=== PATIENT | female | born 1935 | race Caucasian/White ===

== ENCOUNTER 2017-08-12 18:18 | Observation (INO) | payer MEDICARE, OTHER ==
[2017-08-12 19:22] LABS: ADD MAN DIFF? NO
[2017-08-12 19:29] LABS: WHITE BLOOD COUNT 6.7 10^3/ul (4.8-10.8)
[2017-08-12 19:29] LABS: BASOPHIL # 0.1 10^3/ul (0.0-0.1); BASOPHILS % 0.7 % (0.0-2.0); EOSINOPHILS # 0.2 10^3/ul (0.0-0.5); HEMOGLOBIN 11.2 g/dl (12.0-16.0); LYMPHOCYTES % 30.1 % (15.0-51.0); MEAN CORPUSCULAR HEMOGLOBIN 29.2 pg (29.0-33.0); MEAN CORPUSCULAR VOLUME 83.3 fl (82.0-101.0); MEAN PLATELET VOLUME 9.3 fl (7.4-10.4); MONOCYTE # 0.3 10^3/ul (0.3-0.9); MONOCYTES % 5.1 % (0.0-11.0); NEUTROPHIL # 4.1 10^3/ul (1.6-7.5); NEUTROPHILS % 60.7 % (39.0-77.0); PLATELET COUNT 344 10^3/UL (140-415); RED BLOOD COUNT 3.84 10^6/ul (4.20-5.40); RED CELL DISTRIBUTION WIDTH 13.3 % (11.5-14.5)
[2017-08-12 19:42] LABS: INR 0.99; PROTIME 13.2 Sec (11.9-14.9)
[2017-08-12 19:43] LABS: PARTIAL THROMBOPLASTIN TIME 29.5 Sec (25.0-35.0)
[2017-08-12 19:50] LABS: ANION GAP 18 (8-16); BLOOD UREA NITROGEN 12 mg/dl (7-20); CALCIUM 9.4 mg/dl (8.4-10.2); CARBON DIOXIDE 20 mmol/L (21-31); CHLORIDE 94 mmol/L (97-110); GLUCOSE 118 mg/dl (70-220); POTASSIUM 3.8 mmol/L (3.5-5.1); SODIUM 128 mmol/L (135-144)
[2017-08-12 20:43] LABS: TROPONIN-I < 0.012 ng/ml (0.000-0.120)
[2017-08-12] MEDS: SOD CHLORIDE 0.9% 1,000 ML IV (20:48)
[2017-08-12] MEDS: ONDANSETRON 4 MG INJ IV (20:48)
[2017-08-12] MEDS: SOD CHLORIDE 0.9% 500 ML IV ×2 (20:49→23:55)
[2017-08-12] MEDS ORDERED: ACETAMINOPHEN 325 MG TAB PO ×2 (21:00→22:00)
[2017-08-12] MEDS ORDERED: ONDANSETRON 4 MG INJ IV (21:00)
[2017-08-12 21:16] LABS: ADD UMIC YES; UR ASCORBIC ACID NEGATIVE (NEGATIVE); UR BACTERIA FEW /HPF (NONE SEEN); UR BILIRUBIN (Dip) NEGATIVE (NEGATIVE); UR BLOOD (Dip) 1+ mg/dL (NEGATIVE); UR CLARITY CLEAR (CLEAR); UR COLOR COLORLESS (YELLOW); UR GLUCOSE (Dip) NEGATIVE (NEGATIVE); UR KETONES (Dip) NEGATIVE (NEGATIVE); UR LEUKOCYTE ESTERASE (Dip) TRACE Leu/ul (NEGATIVE); UR NITRITE (Dip) NEGATIVE (NEGATIVE); UR RBC 0 /HPF (0-5); UR SPECIFIC GRAVITY (Dip) 1.004 (1.003-1.030); UR TOTAL PROTEIN (Dip) NEGATIVE (NEGATIVE); UR UROBILINOGEN (Dip) NEGATIVE (NEGATIVE); UR WBC 0 /HPF (0-5)
[2017-08-12] MEDS ORDERED: DOCUSATE SODIUM 100 MG CAP PO (22:00)
[2017-08-12] MEDS ORDERED: NACL 0.9% 3 ML SYG IV (22:00)
[2017-08-12] MEDS ORDERED: ONDANSETRON 4 MG TAB PO (22:00)
[2017-08-12] MEDS ORDERED: NITROGLYCERIN (SL) 0.4 MG TAB SL (22:00)
[2017-08-12] MEDS ORDERED: morphine 2 MG INJ IV (22:00)
[2017-08-12] MEDS ORDERED: BISACODYL (EC) 5 MG TAB PO (22:00)
[2017-08-13] MEDS: ASPIRIN 81 MG TAB PO (00:15)
[2017-08-13] MEDS: ZOLPIDEM 5 MG TAB PO (00:38)
[2017-08-13 01:37] LABS: CREATINE KINASE 84 IU/L (23-200)
[2017-08-13 01:50] LABS: CK INDEX 1.3; CK-MB 1.08 ng/ml (0.0-2.4)
[2017-08-13 01:53] LABS: TROPONIN-I < 0.012 ng/ml (0.000-0.120)
[2017-08-13 07:55] LABS: ADD MAN DIFF? NO
[2017-08-13 07:59] LABS: WHITE BLOOD COUNT 7.1 10^3/ul (4.8-10.8)
[2017-08-13 07:59] LABS: BASOPHIL # 0.1 10^3/ul (0.0-0.1); BASOPHILS % 0.8 % (0.0-2.0); EOSINOPHILS # 0.3 10^3/ul (0.0-0.5); EOSINOPHILS % 4.8 % (0.0-7.0); HEMATOCRIT 31.5 % (37.0-47.0); HEMOGLOBIN 10.6 g/dl (12.0-16.0); LYMPHOCYTES # 2.3 10^3/ul (0.8-2.9); LYMPHOCYTES % 31.8 % (15.0-51.0); MEAN CORPUSCULAR HEMOGLOBIN 28.8 pg (29.0-33.0); MEAN CORPUSCULAR HGB CONC 33.7 g/dl (32.0-37.0); MEAN CORPUSCULAR VOLUME 85.6 fl (82.0-101.0); MEAN PLATELET VOLUME 9.2 fl (7.4-10.4); MONOCYTE # 0.5 10^3/ul (0.3-0.9); MONOCYTES % 7.6 % (0.0-11.0); NEUTROPHIL # 3.9 10^3/ul (1.6-7.5); NEUTROPHILS % 54.9 % (39.0-77.0); PLATELET COUNT 341 10^3/UL (140-415); RED BLOOD COUNT 3.68 10^6/ul (4.20-5.40); RED CELL DISTRIBUTION WIDTH 13.4 % (11.5-14.5)
[2017-08-13 08:08] LABS: HEMOGLOBIN A1C 5.7 % (0-5.9)
[2017-08-13 08:22] LABS: ALANINE AMINOTRANSFERASE 12 IU/L (13-69); ALBUMIN 3.9 g/dl (3.3-4.9); ALBUMIN/GLOBULIN RATIO 1.25; ALKALINE PHOSPHATASE 69 IU/L (42-121); ANION GAP 15 (8-16); ASPARTATE AMINO TRANSFERASE 16 IU/L (15-46); BILIRUBIN,INDIRECT 0.3 mg/dl (0-1.1); BILIRUBIN,TOTAL 0.3 mg/dl (0.2-1.3); BLOOD UREA NITROGEN 9 mg/dl (7-20); CALCIUM 9.2 mg/dl (8.4-10.2); CARBON DIOXIDE 24 mmol/L (21-31); CHLORIDE 105 mmol/L (97-110); CHOLESTEROL 259 mg/dl (100-200); CREATININE 0.69 mg/dl (0.44-1.00); GLUCOSE 98 mg/dl (70-220); HDL CHOLESTEROL 43 mg/dl (33-92); LDL CHOLESTEROL,CALCULATED 183 mg/dl; MAGNESIUM 1.9 mg/dl (1.7-2.5); POTASSIUM 3.9 mmol/L (3.5-5.1); SODIUM 140 mmol/L (135-144); TRIGLYCERIDES 163 mg/dl (0-149)
[2017-08-13 08:23] LABS: CREATINE KINASE 68 IU/L (23-200)
[2017-08-13] MEDS: AMLODIPINE 5 MG TAB PO (08:31)
[2017-08-13 08:33] LABS: CK INDEX 1.1; CK-MB 0.74 ng/ml (0.0-2.4)
[2017-08-13 08:45] LABS: TROPONIN-I < 0.012 ng/ml (0.000-0.120)
[2017-08-13] MEDS ORDERED: ATORVASTATIN 20 MG TAB PO (21:00)
== END 2017-08-13 15:19 | disposition home or self-care (01) ==
LOC: E/R 18:18 → MS4 20:52
DX: R07.89 Other chest pain (principal); E87.1 Hypo-osmolality and hyponatremia; E86.0 Dehydration; I10 Essential (primary) hypertension; E78.5 Hyperlipidemia, unspecified; R51 Headache
CPT/HCPCS: 70450; 71045; 80048; 80053; 80061; 81001; 82550; 82553; 83036; 83735; 84443; 84484; 85025; 85610; 85730; 93005; 93306; 96374; 99285-25; G0378

== ENCOUNTER 2017-11-11 19:47 | Inpatient (IN) | payer MEDICARE, OTHER ==
[2017-11-11] MEDS ORDERED: LABETALOL HCL 20MG INJ IV (20:00)
[2017-11-11 20:06] LABS: ADD MAN DIFF? NO
[2017-11-11 20:13] LABS: WHITE BLOOD COUNT 13.7 10^3/ul (4.8-10.8)
[2017-11-11 20:13] LABS: BASOPHILS % 0.1 % (0.0-2.0); EOSINOPHILS % 0.1 % (0.0-7.0); HEMATOCRIT 34.8 % (37.0-47.0); HEMOGLOBIN 12.4 g/dl (12.0-16.0); LYMPHOCYTES # 2.1 10^3/ul (0.8-2.9); LYMPHOCYTES % 15.2 % (15.0-51.0); MEAN CORPUSCULAR HEMOGLOBIN 28.7 pg (29.0-33.0); MEAN CORPUSCULAR HGB CONC 35.6 g/dl (32.0-37.0); MEAN CORPUSCULAR VOLUME 80.6 fl (82.0-101.0); MEAN PLATELET VOLUME 8.7 fl (7.4-10.4); MONOCYTE # 0.6 10^3/ul (0.3-0.9); MONOCYTES % 4.5 % (0.0-11.0); NEUTROPHIL # 10.7 10^3/ul (1.6-7.5); NEUTROPHILS % 78.2 % (39.0-77.0); PLATELET COUNT 390 10^3/UL (140-415); RED BLOOD COUNT 4.32 10^6/ul (4.20-5.40); RED CELL DISTRIBUTION WIDTH 12.3 % (11.5-14.5)
[2017-11-11 20:30] LABS: PROTIME 16.4 Sec (11.9-14.9); PT RATIO 1.3
[2017-11-11 20:31] LABS: PARTIAL THROMBOPLASTIN TIME 35.5 Sec (25.0-35.0)
[2017-11-11 20:36] LABS: ANION GAP 32 (8-16); BLOOD UREA NITROGEN 11 mg/dl (7-20); CALCIUM 9.2 mg/dl (8.4-10.2); CARBON DIOXIDE 12 mmol/L (21-31); CHLORIDE 76 mmol/L (97-110); CHOL/HDL RATIO 5.4 RATIO; CHOLESTEROL 312 mg/dl (100-200); CREATINE KINASE 140 IU/L (23-200); CREATININE 0.79 mg/dl (0.44-1.00); GLUCOSE 227 mg/dl (70-220); HDL CHOLESTEROL 57 mg/dl (33-92); LDL CHOLESTEROL,CALCULATED 237 mg/dl; POTASSIUM 3.2 mmol/L (3.5-5.1); TRIGLYCERIDES 91 mg/dl (0-149)
[2017-11-11 20:37] LABS: SODIUM 117 mmol/L (135-144)
[2017-11-11 20:43] LABS: CK INDEX 1.5; CK-MB 2.03 ng/ml (0.0-2.4)
[2017-11-11 20:48] LABS: TROPONIN-I 0.014 ng/ml (0.000-0.120)
[2017-11-11] MEDS ORDERED: ACETAMINOPHEN 325 MG TAB PO (21:30)
[2017-11-11] MEDS ORDERED: ONDANSETRON 4 MG INJ IV (21:30)
[2017-11-11] MEDS: LEVETIRACETAM 1000 MG (PMX) 100 ML IVPB (22:01)
[2017-11-11 22:14] LABS: ADD UMIC YES; UR AMORPHOUS CRYSTAL FEW /HPF (NONE SEEN); UR ASCORBIC ACID NEGATIVE (NEGATIVE); UR BACTERIA FEW /HPF (NONE SEEN); UR BILIRUBIN (Dip) NEGATIVE (NEGATIVE); UR BLOOD (Dip) 2+ mg/dL (NEGATIVE); UR CLARITY SLIGHTLY CLOUDY (CLEAR); UR COLOR YELLOW (YELLOW); UR GLUCOSE (Dip) 2+ mg/dL (NEGATIVE); UR KETONES (Dip) 1+ mg/dL (NEGATIVE); UR LEUKOCYTE ESTERASE (Dip) NEGATIVE Leu/ul (NEGATIVE); UR NITRITE (Dip) NEGATIVE (NEGATIVE); UR RBC 3 /HPF (0-5); UR SPECIFIC GRAVITY (Dip) 1.011 (1.003-1.030); UR TOTAL PROTEIN (Dip) 2+ mg/dl (NEGATIVE); UR UROBILINOGEN (Dip) NEGATIVE (NEGATIVE); UR WBC 3 /HPF (0-5)
[2017-11-11 22:22] LABS: AMPHETAMINE/METHAMPHETAMINE Negative (NEGATIVE); BARBITURATES Negative (NEGATIVE); BENZODIAZEPINES Negative (NEGATIVE); CANNABINOIDS Negative (NEGATIVE); COCAINE Negative (NEGATIVE); OPIATES Negative (NEGATIVE)
[2017-11-12] MEDS ORDERED: ONDANSETRON 4 MG INJ IV ×2 (03:00→16:00)
[2017-11-12] MEDS ORDERED: ALBUTEROL/IPRATROPIUM (NEB) 3 ML AMP HHN (03:00)
[2017-11-12] MEDS ORDERED: NACL 0.9% 3 ML SYG IV (03:00)
[2017-11-12] MEDS: SOD CHLORIDE 0.9% 1,000 ML IV (03:38)
[2017-11-12] MEDS: clonAZEPAM 0.5 MG TAB PO (09:00)
[2017-11-12] MEDS: HEPARIN 5,000 UNIT/0.5 ML VIAL SC ×2 (09:00→21:19)
[2017-11-12] MEDS ORDERED: NON-FORMULARY/PATIENT OWN MED (Carvedilol* 3.125 MG) PO (09:00)
[2017-11-12] MEDS: BENAZEPRIL 10 MG TAB PO (09:45)
[2017-11-12] MEDS: LEVETIRACETAM 500 MG (PMX) 100 ML IVPB (09:45)
[2017-11-12] MEDS: AMLODIPINE 5 MG TAB PO (09:46)
[2017-11-12] MEDS: POTASSIUM CHLORIDE (SR) 20 MEQ TAB PO (10:30)
[2017-11-12] MEDS: ACETAMINOPHEN 325 MG TAB PO ×2 (12:43→19:49)
[2017-11-12 14:13] LABS: ADD MAN DIFF? NO
[2017-11-12 14:15] LABS: WHITE BLOOD COUNT 9.4 10^3/ul (4.8-10.8)
[2017-11-12 14:15] LABS: BASOPHILS % 0.2 % (0.0-2.0); EOSINOPHILS % 0.1 % (0.0-7.0); HEMATOCRIT 29.1 % (37.0-47.0); HEMOGLOBIN 10.8 g/dl (12.0-16.0); LYMPHOCYTES # 0.9 10^3/ul (0.8-2.9); LYMPHOCYTES % 9.4 % (15.0-51.0); MEAN CORPUSCULAR HEMOGLOBIN 29.3 pg (29.0-33.0); MEAN CORPUSCULAR HGB CONC 37.1 g/dl (32.0-37.0); MEAN CORPUSCULAR VOLUME 79.1 fl (82.0-101.0); MEAN PLATELET VOLUME 9.1 fl (7.4-10.4); MONOCYTE # 0.4 10^3/ul (0.3-0.9); MONOCYTES % 4.7 % (0.0-11.0); NEUTROPHILS % 85.3 % (39.0-77.0); PLATELET COUNT 305 10^3/UL (140-415); RED BLOOD COUNT 3.68 10^6/ul (4.20-5.40); RED CELL DISTRIBUTION WIDTH 12.5 % (11.5-14.5)
[2017-11-12 14:35] LABS: HEMOGLOBIN A1C 5.9 % (0-5.9)
[2017-11-12 14:35] LABS: ALANINE AMINOTRANSFERASE 26 IU/L (13-69); ALBUMIN 3.7 g/dl (3.3-4.9); ALBUMIN/GLOBULIN RATIO 1.12; ALKALINE PHOSPHATASE 67 IU/L (42-121); ANION GAP 16 (8-16); ASPARTATE AMINO TRANSFERASE 52 IU/L (15-46); BILIRUBIN,INDIRECT 0.6 mg/dl (0-1.1); BILIRUBIN,TOTAL 0.6 mg/dl (0.2-1.3); BLOOD UREA NITROGEN 12 mg/dl (7-20); CALCIUM 8.4 mg/dl (8.4-10.2); CARBON DIOXIDE 23 mmol/L (21-31); CHLORIDE 85 mmol/L (97-110); CHOL/HDL RATIO 5.2 RATIO; CHOLESTEROL 233 mg/dl (100-200); CREATININE 0.61 mg/dl (0.44-1.00); GLUCOSE 121 mg/dl (70-220); HDL CHOLESTEROL 44 mg/dl (33-92); LDL CHOLESTEROL,CALCULATED 172 mg/dl; MAGNESIUM 1.7 mg/dl (1.7-2.5); POTASSIUM 3.3 mmol/L (3.5-5.1); SODIUM 121 mmol/L (135-144); TRIGLYCERIDES 84 mg/dl (0-149)
[2017-11-12 15:03] LABS: THYROID STIMULATING HORMONE 0.643 MIU/L (0.465-4.680)
[2017-11-12 15:23] LABS: SODIUM,URINE RANDOM 19 mmol/L (30-90)
[2017-11-12 15:51] LABS: OSMOLALITY 244 mOsm/kg (280-295)
[2017-11-12 15:59] LABS: OSMOLALITY,URINE 265 mOsm/kg (250-1200)
[2017-11-12] MEDS ORDERED: DOCUSATE SODIUM 100 MG CAP PO (16:00)
[2017-11-12] MEDS ORDERED: LOPERAMIDE HCL 1 MG/5 ML LIQUID (10 ML UD CUP) PO (16:00)
[2017-11-12 17:12] LABS: ANION GAP 15 (8-16); BLOOD UREA NITROGEN 11 mg/dl (7-20); CALCIUM 8.6 mg/dl (8.4-10.2); CARBON DIOXIDE 23 mmol/L (21-31); CHLORIDE 88 mmol/L (97-110); CREATININE 0.65 mg/dl (0.44-1.00); GLUCOSE 113 mg/dl (70-220); POTASSIUM 3.5 mmol/L (3.5-5.1); SODIUM 122 mmol/L (135-144)
[2017-11-12] MEDS: ATORVASTATIN 20 MG TAB PO (21:18)
[2017-11-12] MEDS: HYDROCODONE/APAP (5/325) TAB PO (22:07)
[2017-11-13] MEDS: LORAZEPAM 2 MG INJ IV (00:35)
[2017-11-13] MEDS: HYDROCODONE/APAP (5/325) TAB PO (04:47)
[2017-11-13 05:52] LABS: ADD MAN DIFF? NO
[2017-11-13 05:53] LABS: BASOPHILS % 0.1 % (0.0-2.0); EOSINOPHILS # 0.1 10^3/ul (0.0-0.5); HEMATOCRIT 28.7 % (37.0-47.0); HEMOGLOBIN 10.4 g/dl (12.0-16.0); LYMPHOCYTES # 1.4 10^3/ul (0.8-2.9); LYMPHOCYTES % 18.9 % (15.0-51.0); MEAN CORPUSCULAR HEMOGLOBIN 29.3 pg (29.0-33.0); MEAN CORPUSCULAR HGB CONC 36.2 g/dl (32.0-37.0); MEAN CORPUSCULAR VOLUME 80.8 fl (82.0-101.0); MEAN PLATELET VOLUME 8.9 fl (7.4-10.4); MONOCYTE # 0.5 10^3/ul (0.3-0.9); MONOCYTES % 6.6 % (0.0-11.0); NEUTROPHIL # 5.3 10^3/ul (1.6-7.5); PLATELET COUNT 271 10^3/UL (140-415); RED BLOOD COUNT 3.55 10^6/ul (4.20-5.40); RED CELL DISTRIBUTION WIDTH 12.7 % (11.5-14.5)
[2017-11-13 05:53] LABS: WHITE BLOOD COUNT 7.2 10^3/ul (4.8-10.8)
[2017-11-13 06:28] LABS: IRON 36 ug/dl (35-150)
[2017-11-13 06:37] LABS: ANION GAP 12 (8-16); BLOOD UREA NITROGEN 11 mg/dl (7-20); CALCIUM 8.5 mg/dl (8.4-10.2); CARBON DIOXIDE 24 mmol/L (21-31); CHLORIDE 92 mmol/L (97-110); GLUCOSE 116 mg/dl (70-220); MAGNESIUM 1.9 mg/dl (1.7-2.5); PHOSPHORUS 2.3 mg/dl (2.5-4.9); POTASSIUM 3.4 mmol/L (3.5-5.1); SODIUM 125 mmol/L (135-144)
[2017-11-13 06:38] LABS: % IRON SATURATION 15 % SAT (22-52); TOTAL IRON BINDING CAPACITY 245 ug/dl (241-421)
[2017-11-13 07:15] LABS: POTASSIUM,URINE RANDOM 12.1 mmol/L (25-125)
[2017-11-13 07:28] LABS: SODIUM,URINE RANDOM < 13 mmol/L (30-90)
[2017-11-13] MEDS: clonAZEPAM 0.5 MG TAB PO (08:37)
[2017-11-13] MEDS: BENAZEPRIL 10 MG TAB PO (08:38)
[2017-11-13] MEDS: POTASSIUM CHLORIDE (SR) 20 MEQ TAB PO (08:39)
[2017-11-13] MEDS: AMLODIPINE 5 MG TAB PO (08:39)
[2017-11-13] MEDS: HEPARIN 5,000 UNIT/0.5 ML VIAL SC ×2 (09:06→21:15)
[2017-11-13 10:13] LABS: OSMOLALITY 253 mOsm/kg (280-295)
[2017-11-13 10:13] LABS: OSMOLALITY,URINE 178 mOsm/kg (250-1200)
[2017-11-13] MEDS: ACETAMINOPHEN 325 MG TAB PO ×2 (15:49→21:03)
[2017-11-13] MEDS: ATORVASTATIN 20 MG TAB PO (20:24)
[2017-11-14] MEDS: clonAZEPAM 0.5 MG TAB PO (08:37)
[2017-11-14] MEDS: POTASSIUM CHLORIDE (SR) 20 MEQ TAB PO (08:37)
[2017-11-14] MEDS: AMLODIPINE 5 MG TAB PO (08:38)
[2017-11-14] MEDS: BENAZEPRIL 10 MG TAB PO (08:38)
[2017-11-14] MEDS: ACETAMINOPHEN 325 MG TAB PO ×3 (08:40→19:06)
[2017-11-14] MEDS: HEPARIN 5,000 UNIT/0.5 ML VIAL SC ×2 (08:58→21:29)
[2017-11-14 11:56] LABS: ALANINE AMINOTRANSFERASE 25 IU/L (13-69); ALBUMIN 3.6 g/dl (3.3-4.9); ALKALINE PHOSPHATASE 72 IU/L (42-121); ANION GAP 15 (8-16); ASPARTATE AMINO TRANSFERASE 66 IU/L (15-46); BILIRUBIN,INDIRECT 0.2 mg/dl (0-1.1); BILIRUBIN,TOTAL 0.2 mg/dl (0.2-1.3); BLOOD UREA NITROGEN 10 mg/dl (7-20); CALCIUM 8.6 mg/dl (8.4-10.2); CARBON DIOXIDE 25 mmol/L (21-31); CHLORIDE 95 mmol/L (97-110); CREATININE 0.64 mg/dl (0.44-1.00); GLUCOSE 116 mg/dl (70-220); MAGNESIUM 1.9 mg/dl (1.7-2.5); PHOSPHORUS 2.4 mg/dl (2.5-4.9); POTASSIUM 4.1 mmol/L (3.5-5.1); SODIUM 131 mmol/L (135-144); TOTAL PROTEIN 6.6 g/dl (6.1-8.1)
[2017-11-14] MEDS: ATORVASTATIN 20 MG TAB PO (21:02)
[2017-11-14] MEDS: HYDROCODONE/APAP (10/325) TAB PO (21:03)
[2017-11-15] MEDS: clonAZEPAM 0.5 MG TAB PO (08:24)
[2017-11-15] MEDS: POTASSIUM CHLORIDE (SR) 20 MEQ TAB PO (08:24)
[2017-11-15] MEDS: HEPARIN 5,000 UNIT/0.5 ML VIAL SC ×2 (09:15→22:15)
[2017-11-15] MEDS: AMLODIPINE 2.5 MG TAB PO (09:18)
[2017-11-15] MEDS: BENAZEPRIL 20 MG TAB PO (09:18)
[2017-11-15] MEDS: LIDOCAINE 5% PATCH TD (09:54)
[2017-11-15] MEDS: SODIUM CHLORIDE 1 GM TAB PO ×2 (10:32→21:59)
[2017-11-15 12:12] LABS: ADD MAN DIFF? NO
[2017-11-15 12:15] LABS: BASOPHILS % 0.5 % (0.0-2.0); EOSINOPHILS # 0.3 10^3/ul (0.0-0.5); EOSINOPHILS % 3.5 % (0.0-7.0); HEMATOCRIT 32.3 % (37.0-47.0); LYMPHOCYTES # 2.1 10^3/ul (0.8-2.9); LYMPHOCYTES % 26.4 % (15.0-51.0); MEAN CORPUSCULAR HEMOGLOBIN 28.9 pg (29.0-33.0); MEAN CORPUSCULAR HGB CONC 34.1 g/dl (32.0-37.0); MEAN PLATELET VOLUME 9.4 fl (7.4-10.4); MONOCYTE # 0.7 10^3/ul (0.3-0.9); MONOCYTES % 9.1 % (0.0-11.0); NEUTROPHIL # 4.9 10^3/ul (1.6-7.5); NEUTROPHILS % 60.3 % (39.0-77.0); PLATELET COUNT 387 10^3/UL (140-415); RED CELL DISTRIBUTION WIDTH 13.3 % (11.5-14.5)
[2017-11-15 12:15] LABS: WHITE BLOOD COUNT 8.1 10^3/ul (4.8-10.8)
[2017-11-15 12:37] LABS: MAGNESIUM 1.8 mg/dl (1.7-2.5)
[2017-11-15 12:40] LABS: ALANINE AMINOTRANSFERASE 33 IU/L (13-69); ALBUMIN 3.7 g/dl (3.3-4.9); ALBUMIN/GLOBULIN RATIO 1.05; ALKALINE PHOSPHATASE 79 IU/L (42-121); ANION GAP 16 (8-16); ASPARTATE AMINO TRANSFERASE 82 IU/L (15-46); BILIRUBIN,INDIRECT 0.2 mg/dl (0-1.1); BILIRUBIN,TOTAL 0.2 mg/dl (0.2-1.3); BLOOD UREA NITROGEN 9 mg/dl (7-20); CALCIUM 9.3 mg/dl (8.4-10.2); CARBON DIOXIDE 27 mmol/L (21-31); CHLORIDE 94 mmol/L (97-110); CREATININE 0.62 mg/dl (0.44-1.00); GLUCOSE 131 mg/dl (70-220); POTASSIUM 4.4 mmol/L (3.5-5.1); SODIUM 133 mmol/L (135-144); TOTAL PROTEIN 7.2 g/dl (6.1-8.1)
[2017-11-15] MEDS: ACETAMINOPHEN 325 MG TAB PO (15:01)
[2017-11-15] MEDS: ATORVASTATIN 20 MG TAB PO (21:59)
[2017-11-15] MEDS: HYDROCODONE/APAP (10/325) TAB PO (23:28)
[2017-11-16] MEDS: POTASSIUM CHLORIDE (SR) 20 MEQ TAB PO (09:24)
[2017-11-16] MEDS: SODIUM CHLORIDE 1 GM TAB PO (09:24)
[2017-11-16] MEDS: clonAZEPAM 0.5 MG TAB PO (09:24)
[2017-11-16] MEDS: AMLODIPINE 2.5 MG TAB PO (09:26)
[2017-11-16] MEDS: BENAZEPRIL 20 MG TAB PO (09:26)
[2017-11-16] MEDS: LIDOCAINE 5% PATCH TD (09:27)
[2017-11-16] MEDS: HEPARIN 5,000 UNIT/0.5 ML VIAL SC (09:38)
[2017-11-16 13:23] LABS: ANION GAP 14 (8-16); BLOOD UREA NITROGEN 10 mg/dl (7-20); CALCIUM 9.5 mg/dl (8.4-10.2); CARBON DIOXIDE 29 mmol/L (21-31); CHLORIDE 95 mmol/L (97-110); CREATININE 0.64 mg/dl (0.44-1.00); GLUCOSE 106 mg/dl (70-220); POTASSIUM 5.3 mmol/L (3.5-5.1); SODIUM 133 mmol/L (135-144)
== END 2017-11-16 19:02 | disposition home health service (06) | DRG 640 ==
LOC: 5EC 11-15 06:47 → 6WM 21:13 → E/R 19:47 → 6WM 11-15 06:57
DX: E87.1 Hypo-osmolality and hyponatremia (principal); G93.41 Metabolic encephalopathy; R56.9 Unspecified convulsions; I10 Essential (primary) hypertension; R63.0 Anorexia; R63.4 Abnormal weight loss; S01.552A Open bite of oral cavity, initial encounter; X58.XXXA Exposure to other specified factors, initial encounter; R73.9 Hyperglycemia, unspecified; E78.5 Hyperlipidemia, unspecified; E87.6 Hypokalemia; Z68.22 Body mass index [BMI] 22.0-22.9, adult; Y92.019 Unspecified place in single-family (private) house as the place of occurrence of the external cause
CPT/HCPCS: 70450; 70553; 71045; 76856; 80048; 80053; 80061; 80307; 81001; 82436; 82550; 82553; 82728; 82962; 83036; 83540; 83735; 83930; 83935; 84100; 84133; 84300; 84443; 84484; 85025; 85610; 85730; 92610; 93005; 95819; 97110; 97116; 97162; 97530; 99291-25